=== PATIENT | female | born 1995 | race Caucasian/White ===

== ENCOUNTER → 2020-03-11 | Day surgery (SDC) | payer OTHER ==
[~2020-03-11] MED LIST: AMOXICILLIN500 M1 PO; ANAPROX DS550 MG PO; COLACE100 MG PO; FERROUS SULFAT325 M2 PO; IBU600 MG PO; IBUPROFEN800 MG PO; INTEGRA F CAPS1 EACH PO; PERCOCET 5/325 T1 EA PO; TIZANIDINE HCL4 MG PO
[2020-03-11 11:15] LABS: RED BLOOD COUNT 4.58 M/UL (4.00-5.10)
== END | disposition home or self-care (01) ==
LOC: OR 09:00
PROVIDERS: Obstetrics & Gynecology
DX: N92.0 Excessive and frequent menstruation with regular cycle (principal); N93.8 Other specified abnormal uterine and vaginal bleeding; N94.6 Dysmenorrhea, unspecified; G43.909 Migraine, unspecified, not intractable, without status migrainosus; F41.9 Anxiety disorder, unspecified; E78.5 Hyperlipidemia, unspecified; D64.9 Anemia, unspecified; F17.200 Nicotine dependence, unspecified, uncomplicated; Z79.899 Other long term (current) drug therapy
CPT/HCPCS: 36415; 81001; 84703; 85025; J1100; J1885; J2001; J2250; J2405; J2704; J2765; J3010; J7030; J7120

== ENCOUNTER → 2020-06-24 | Outpatient (CLI) | payer OTHER ==
[2020-06-24 10:44] LABS: HEMOGLOBIN 14.6 gm/dl (12.3-15.3); RED BLOOD COUNT 4.68 M/UL (4.00-5.10); WHITE BLOOD COUNT 9.3 K/UL (4.5-11.0)
== END ==
LOC: OPSV2 09:30
PROVIDERS: Obstetrics & Gynecology
DX: Z01.818 Encounter for other preprocedural examination (principal)
CPT/HCPCS: 36415; 81001; 85025

== ENCOUNTER 2020-07-01 07:24 | Day surgery (SDC) | payer OTHER ==
[~2020-07-01] VITALS: Ht 157.5 cm; Wt 68.9 kg
[~2020-07-01 07:24] MED LIST changes: -COLACE100 MG PO; -IBUPROFEN800 MG PO; -PERCOCET 5/325 T1 EA PO
--- NOTE | 2020-07-01 21:36 | NUR ---
PT STATES SHE IS HAVING SOME PAIN. TORADOL WAS GIVEN. IVF RUNNING TO RIGHT HAND IV. PATENT. NAD NOTED. MULTANI WAS REMOVED PER DR RED'S ORDERS AT APPROX 2030 PM. VAGINAL PACKING ALSO REMOVED. PT MELITON WELL. SHE IS MOBILE, UP WALKING IN THE ROOM. VERY SCANT VAGINAL BLEEDING. CALL LIGHT WITHIN REACH.
[2020-07-02 05:37] LABS: HEMOGLOBIN 12.1 gm/dl (12.3-15.3)
[2020-07-02] MEDS ORDERED: COLACE100 MG PO (09:26)
[2020-07-02] MEDS ORDERED: PERCOCET 5/325 T1 EA PO (09:26)
[2020-07-02] MEDS ORDERED: IBUPROFEN800 MG PO (09:26)
== END 2020-07-02 11:26 | disposition home or self-care (01) ==
LOC: OR 07:24 → OB 13:21 → OR 13:42
PROVIDERS: Obstetrics & Gynecology
DX: N72 Inflammatory disease of cervix uteri (principal); N87.9 Dysplasia of cervix uteri, unspecified; G43.909 Migraine, unspecified, not intractable, without status migrainosus; E78.5 Hyperlipidemia, unspecified; J45.909 Unspecified asthma, uncomplicated; F41.9 Anxiety disorder, unspecified; F17.210 Nicotine dependence, cigarettes, uncomplicated; Z79.2 Long term (current) use of antibiotics; Z79.1 Long term (current) use of non-steroidal anti-inflammatories (NSAID); Z79.899 Other long term (current) drug therapy; Z20.822 Contact with and (suspected) exposure to COVID-19
CPT/HCPCS: 36415; 85014; 85018; J0690; J1100; J1885; J2001; J2250; J2405; J2550; J2704; J2710; J2765; J3010; J7120; U0002